=== PATIENT | male | born 1950 | race Two or more races ===

== ENCOUNTER → 2025-01-13 | Outpatient (CLI) | payer MEDICARE, OTHER, SELFPAY ==
[2025-01-13 11:31] LABS: Basophils % (Auto) 0 % (0-2.5); Eosinophils # (Auto) 0.1 Thou/mm3 (0.0-0.5); Eosinophils % (Auto) 1 % (0-10); Hematocrit 43.6 % (41.0-53.0); Hemoglobin 14.5 g/dL (13.5-16.0); Immature Granulocytes % (Auto) 1 % (0-0); Immature Granulocytes Auto 0.05 Thou/mm3 (0.00-0.00); Lymphocytes # (Auto) 1.6 Thou/mm3 (1.0-4.8); Lymphocytes % (Auto) 20 % (10-50); Mean Corpuscular HGB Conc 33.3 g/dl (31.0-37.0); Mean Corpuscular Hemoglobin 29.5 pg (25.0-35.0); Mean Corpuscular Volume 89 fL (80-100); Monocytes # (Auto) 0.5 Thou/mm3 (0.0-0.8); Monocytes % (Auto) 7 % (0-12); Neutrophils # (Auto) 5.7 Thou/mm3 (1.8-7.7); Neutrophils % (Auto) 72 % (37-80); Nucleated Red Blood Cell % 0 /100 WBC (0); Platelet Count 251 Thou/mm3 (140-440); RDW Standard Deviation 41.2 fL (35.1-43.9); Red Blood Count 4.91 Miln/mm3 (4.50-5.90)
[2025-01-13 11:48] LABS: Alanine Aminotransferase 20 U/L (10-49); Albumin, Serum 4.5 gm/dL (3.4-4.8); Albumin/Globulin Ratio 1.7 (1.2-2.2); Alkaline Phosphatase 88 U/L (46-116); Anion Gap 10 (7-16); Aspartate Amino Transferase 12 U/L (0-34); BUN/Creatinine Ratio 13 Ratio (12-20); Bilirubin,Total 0.6 mg/dL (0.3-1.2); Blood Urea Nitrogen 14 mg/dL (9-23); Calcium 9.9 mg/dL (8.3-10.6); Calcium (Corrected) 9.9 mg/dL (8.5-10.1); Carbon Dioxide 25.3 mMol/L (20.0-31.0); Chloride 106 mMol/L (98-107); Creatinine (Component) 1.1 mg/dL (0.6-1.3); Globulin 2.6 gm/dL (2.3-3.5); Glucose 137 mg/dL (74-106); Osmolality,Calculated 283 (275-295); Potassium 4.2 mMol/L (3.4-5.1); Sodium 141 mMol/L (136-145); Total Protein 7.1 gm/dL (5.7-8.2); eGFR > 60 See Note
[2025-01-13 12:02] LABS: Prostate Specific Antigen < 0.10 ng/mL (0-4.00)
[2025-01-13 12:08] LABS: Carcinoembryonic Antigen 3.3 ng/mL (0.0-5.0)
== END | disposition home or self-care (01) ==
LOC: SCTO 09:58
PROVIDERS: PCP Family Medicine; Referring Provider Internal Medicine Hematology & Oncology; Visit Provider Internal Medicine Hematology & Oncology
DX: C20 Malignant neoplasm of rectum (principal); C61 Malignant neoplasm of prostate
CPT/HCPCS: 36415; 80053; 82378; 84153; 85025

== ENCOUNTER 2025-01-20 10:49 | Outpatient (RCR) | payer MEDICARE, OTHER, SELFPAY ==
--- NOTE | 2025-02-07 22:26 | CTCFLWUP_ITS ---
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 S/p laparoscopic sigmoid colectomy (11/28/2022) Proficient MMR expression currently on adjuvant 5-FU and leucovorin (02/04/2023?07/10/2023) Left lower extremity DVT (07/03/2023) treated with apixaban. History of localized prostatic adenocarcinoma. S/p robotic prostatectomy July 2019. Type 2 diabetes. Hypertension. Hypercholesterolemia REASON FOR TODAY?S VISIT: This is office follow-up visit. Mr. Monsivais is here at [facility] accompanied by his . Neema, our MA is helping with the translation. Mr. Monsivais is clinically doing well. Denies any complaints. Denies any cough, chest pain, abdominal pain or leg cramps. Denies any diarrhea or constipation. Ambulating well. Has good appetite and good energy levels. 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 Art recently had screening colonoscopy and found to have a mass lesion in the rectal area. 06/19/2019: Prostate biopsy showed Ripton score 7 prostatic adenocarcinoma. July 2019: History of robotic assisted radical prostatectomy and bilateral pelvic lymph node dissection for pT3 aN0 cM0 Jenise score 7 prostatic adenocarcinoma.. 08/24/2022: Screening colonoscopy 08/31/2022: CT scan of the abdomen and pelvis with IV contrast? 09/19/2022: CEA 0.9 10/30/2022: Notes from [facility] 11/24/2022: MRI of the abdomen with and without contrast? 11/28/2022: Mr. Monsivais had laparoscopic sigmoid colectomy at [facility]. 12/18/2022: CT-guided biopsy of the anterior liver lesion? 10/17/2023: CT scan of the chest abdomen and pelvis with IV contrast 12/12/2023: MRI of the abdomen with and without contrast OTHER MEDICAL HISTORY/CONDITIONS: HTN Prostate CA - dx 2019 Diabetes High cholesterol Colonoscopy - 08/24/22 Right eye surgery - 2013 FAMILY HISTORY: Patient?denies?family?cancer?history. 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 MEDICATIONS: 1. amlodipine - 10 mg 1 tab Daily 2. enalapril maleate - 10 mg 1 tab Twice a Day 3. metFORMIN - 1,000 mg 1 tab Twice a Day 4. simvastatin - 20 mg 1 tab Daily Medications Last Reconciled by Gerda Beltrán MA on 01/20/2025 ALLERGIES: No Known Drug Allergies REVIEW OF SYSTEMS: A complete 14-point review of systems was performed and is negative except as noted in interval history. PHYSICAL EXAMINATION: VITAL SIGNS: Temperature?99.4, B/P?165/92, Oxygen?Saturation?94% Weight?222?lbs PAIN: 0 - No pain ECOG Performance Status: None GENERAL APPEARANCE: Appears well, in no apparent distress, appropriately interactive. HEENT: Normocephalic, no temporal wasting, normal conjunctiva, no scleral icterus, normal hearing, lips without lesions, neck normal range of motion. CARDIOVASCULAR: Not assessed. PULMONARY: Normal respiratory effort, no respiratory distress or use of accessory muscles, speaking in full sentences, no tachypnea. EXTREMITIES: No pedal edema or cyanosis. SKIN: Normal skin appearance. NEUROLOGIC: Alert and oriented x4. PSHYCHIATRIC: Appropriate affect, mood normal, behavior normal, intact thought and speech. LABORATORY DATA: I have personally reviewed and interpreted each of the patient?s relevant lab tests, abnormal findings are below: Date 08/14/24 01/13/25 ??WHITE?BLOOD?COUNT?(Thou/mm3) ? 8.0 ??RED?BLOOD?COUNT?(Miln/mm3) ? 4.91 ??HEMOGLOBIN?(gm/dl) ? 14.5 ??HEMATOCRIT?(%) ? 43.6 ??PLATELET?COUNT?(Thou/mm3) ? 251 ??NEUTROPHILS?%,?AUTO?(%) ? 72 ??LYMPH?%,?AUTO?(%) ? 20 ??NEUTROPHILS,?AUTO?(Thou/mm3) ? 5.7 ??GLUCOSE,RANDOM?(mg/dL) 148?H 137?H ??BLOOD?UREA?NITROGEN?(mg/dL) 20 14 ??CREATININE?(mg/dL) 1.10 1.10 ??SODIUM?(mmol/L) 140 141 ??POTASSIUM?(mmol/L) 4.0 4.2 ??CHLORIDE?(mmol/L) 107 106 ??CrCl?(CandG)?(ml/min) 63.58 63.58 ??AST/SGOT?(Unit/L) 14 12 ??ALT/SGPT?(Unit/L) 10 20 ??ALKALINE?PHOSPHATASE?(Unit/L) 96 88 ??BILIRUBIN,?TOTAL?(mg/dL) 0.5 0.6 ??PROTEIN?TOTAL?(gm/dl) 7.0 7.1 ??ALBUMIN,?SERUM?(gm/dl) 4.3 4.5 ??GLOBULIN?(gm/dl) 2.7 2.6 ??ALBUMIN/GLOBULIN?RATIO 1.6 1.7 ??CALCIUM,?SERUM?(mg/dL) 10.1 9.9 ??CALCIUM?SERUM?(CORRECTED)?(mg/dL) 10.1 9.9 ??CEA?(O*)?(ng/ml) ? 3.3 ASSESSMENT/PLAN: 1. Mr. Monsivais denies any complaints. Has good appetite and good energy levels. 2. CEA 1.5 on 07/22/2024 3. He still has the Chemo-Port on the right chest wall. 4. MRI of the abdomen done on 12/12/2023 is negative for metastatic disease.. 5. Left lower extremity DVT currently on Eliquis. Eliquis to be discontinued in December 2023. 6. S/p adjuvant 5-FU and leucovorin. 7. S/p laparoscopic sigmoid colectomy (11/28/2022) showed stage IIa, 4.8 cm moderately differentiated adenocarcinoma of the sigmoid colon as described above. 8. Liver biopsy negative for metastatic disease. 9. endoscopy done at [facility] on 10/30/2022 showed the tumor to be in the sigmoid colon. 10. Echocardiogram done at Dr. Rosales Ochoa's office on 05/30/2022 showed that showed ejection fraction to be 65% 11. Localized prostate cancer. S/p robotic prostatectomy in July 2019 without any clinical evidence of recurrence. Currently being followed by Dr. Gillis 12. Type 2 diabetes. 13. Hypertension. 14. Hypercholesterolemia 1. Arrange for Chemo-Port removal. 2. Will see him back in clinic in 6 months with CBC, CMP, CEA, PSA done prior to the visit ORDERS: Order # Description [id number] Comprehensive Metabolic Panel - 12 + CBC with Auto Diff + PSA + CEA [id number] Follow Up 6 Month RETURN TO CLINIC: BILLING AND COMPLIANCE: I reviewed external records from providers outside my specialty as summarized above. I spent a total of 50 minutes on this patient?s care on the day of their visit excluding time spent related to any billed procedures. This time includes time spent with the patient as well as time spent documenting in the medical record, reviewing patients records and tests, obtaining history, placing orders, communicating with other healthcare professionals, counseling the patient, family or caregiver, and/or care coordination for the diagnoses above. Electronically Signed by: {Object.Sanct_ID*[email or web address]@M}, {Object.Sanct_ID*PnP.Suffix@U} D: {Object.Sanct_Date} T: {Object.Sanct_Time} CC: Massimo?Rubens,? PCP: Skyler Palacio Referring: Skyler Palacio This document was completed utilizing speech recognition software. Grammatical errors, random word insertions, pronoun errors, and incomplete sentences are an occasional consequence of this system due to software limitations, ambient noise, and hardware issues. Any formal questions or concerns about the content, text or information contained within the body of this dictation should be directly addressed to the provider for clarification.
== END 2025-02-08 23:59 | disposition home or self-care (01) ==
LOC: SCTC 10:49
PROVIDERS: PCP Family Medicine; Referring Provider Family Medicine; Visit Provider Internal Medicine Hematology & Oncology
DX: C18.7 Malignant neoplasm of sigmoid colon (principal); Z86.718 Personal history of other venous thrombosis and embolism; Z90.49 Acquired absence of other specified parts of digestive tract; Z85.46 Personal history of malignant neoplasm of prostate; Z90.79 Acquired absence of other genital organ(s); E11.9 Type 2 diabetes mellitus without complications; I10 Essential (primary) hypertension; E78.00 Pure hypercholesterolemia, unspecified; Z92.21 Personal history of antineoplastic chemotherapy
CPT/HCPCS: 99213; G0463

== ENCOUNTER → 2025-02-10 | Outpatient (CLI) | payer MEDICARE, OTHER, SELFPAY ==
[2025-02-10 10:35] LABS: Glucose Estimated Average 148 mg/dL (80-131); Hemoglobin A1C 6.8 % Hgb (4.8-6.0)
[2025-02-10 10:44] LABS: Prostate Specific Antigen < 0.10 ng/mL (0-4.00)
[2025-02-10 10:49] LABS: Creatinine MALB Rnd Ur 105 mg/dL (30-125); Microalbumin Creat Ratio 11 mg/gCrea (<30); Microalbumin, Random Urine 12 mg/L (0-300)
[2025-02-10 10:57] LABS: Albumin, Serum 4.3 gm/dL (3.4-4.8); Anion Gap 10 (7-16); BUN/Creatinine Ratio 13 Ratio (12-20); Blood Urea Nitrogen 14 mg/dL (9-23); Calcium 9.4 mg/dL (8.3-10.6); Calcium (Corrected) 9.4 mg/dL (8.5-10.1); Carbon Dioxide 25.9 mMol/L (20.0-31.0); Cardiac Risk Estimate 3.8 RATIO (4.0-6.7); Chloride 106 mMol/L (98-107); Cholesterol 125 mg/dL (132-200); Creatinine (Component) 1.1 mg/dL (0.6-1.3); Glucose 126 mg/dL (74-106); HDL Cholesterol 33 mg/dL (40-60); LDL Cholesterol,Calculated 71 mg/dL (0-130); Osmolality,Calculated 285 (275-295); Potassium 4.2 mMol/L (3.4-5.1); Sodium 142 mMol/L (136-145); Thyroid Stimulating Hormone 8.39 uIU/mL (0.55-4.78); Triglycerides 103 mg/dL (30-150); eGFR > 60 See Note
== END | disposition home or self-care (01) ==
LOC: COPL 09:28
PROVIDERS: PCP Family Medicine; Referring Provider Family Medicine; Visit Provider Family Medicine
DX: N42.9 Disorder of prostate, unspecified (principal); E11.65 Type 2 diabetes mellitus with hyperglycemia; E78.1 Pure hyperglyceridemia
CPT/HCPCS: 36415; 80061; 80069; 82043; 82570; 83036; 84153; 84439; 84443

== ENCOUNTER → 2025-02-15 | Outpatient (CLI) | payer MEDICARE, OTHER, SELFPAY ==
[2025-02-15 09:14] LABS: Misc Send Out* See Sep Rpt
== END | disposition home or self-care (01) ==
PROVIDERS: PCP Family Medicine; Referring Provider Internal Medicine Hematology & Oncology; Visit Provider Internal Medicine Hematology & Oncology
DX: C20 Malignant neoplasm of rectum (principal); C61 Malignant neoplasm of prostate

== ENCOUNTER 2025-07-26 10:50 | Outpatient (RCR) | payer MEDICARE, OTHER, SELFPAY ==
[2025-07-23 10:39] LABS: Basophils # (Auto) 0.0 Thou/mm3 (0.0-0.2); Basophils % (Auto) 1 % (0-2.5); Eosinophils # (Auto) 0.2 Thou/mm3 (0.0-0.5); Eosinophils % (Auto) 3 % (0-10); Hematocrit 38.7 % (41.0-53.0); Hemoglobin 12.8 g/dL (13.5-16.0); Immature Granulocytes Auto 0.03 Thou/mm3 (0.00-0.00); Lymphocytes # (Auto) 1.4 Thou/mm3 (1.0-4.8); Lymphocytes % (Auto) 18 % (10-50); Mean Corpuscular HGB Conc 33.1 g/dl (31.0-37.0); Mean Corpuscular Hemoglobin 29.7 pg (25.0-35.0); Mean Corpuscular Volume 90 fL (80-100); Monocytes # (Auto) 0.5 Thou/mm3 (0.0-0.8); Monocytes % (Auto) 7 % (0-12); Neutrophils # (Auto) 5.7 Thou/mm3 (1.8-7.7); Neutrophils % (Auto) 72 % (37-80); Nucleated Red Blood Cell # 0.00 Thou/mm3 (0.00-0.00); Nucleated Red Blood Cell % 0 /100 WBC (0); Platelet Count 256 Thou/mm3 (140-440); RDW Standard Deviation 41.9 fL (35.1-43.9); Red Blood Count 4.31 Miln/mm3 (4.50-5.90); White Blood Count 7.9 Thou/mm3 (3.8-10.6)
[2025-07-23 10:56] LABS: Prostate Specific Antigen < 0.10 ng/mL (0-4.00)
[2025-07-23 11:01] LABS: Carcinoembryonic Antigen 6.9 ng/mL (0.0-5.0)
[2025-07-23 11:12] LABS: Alanine Aminotransferase 9 U/L (10-49); Albumin, Serum 4.1 gm/dL (3.4-4.8); Albumin/Globulin Ratio 1.7 (1.2-2.2); Alkaline Phosphatase 97 U/L (46-116); Anion Gap 12 (7-16); Aspartate Amino Transferase 18 U/L (0-34); BUN/Creatinine Ratio 15 Ratio (12-20); Bilirubin,Total 0.4 mg/dL (0.3-1.2); Blood Urea Nitrogen 16 mg/dL (9-23); Calcium 9.7 mg/dL (8.3-10.6); Calcium (Corrected) 9.7 mg/dL (8.5-10.1); Carbon Dioxide 23.4 mMol/L (20.0-31.0); Chloride 106 mMol/L (98-107); Creatinine (Component) 1.1 mg/dL (0.6-1.3); Globulin 2.4 gm/dL (2.3-3.5); Glucose 105 mg/dL (74-106); Osmolality,Calculated 282 (275-295); Potassium 4.0 mMol/L (3.4-5.1); Sodium 141 mMol/L (136-145); Total Protein 6.5 gm/dL (5.7-8.2); eGFR > 60 See Note
--- NOTE | 2025-07-26 11:46 | CTCFLWUP_ITS ---
Patient: KOKI MONSIVAIS : 1950 Page 5 of 7 FOLLOW UP NOTE DATE OF SERVICE: 07/26/2025 NAME: KOKI MONSIVAIS ACCOUNT: [id number] : 1950 AGE: 75 INTERVAL HISTORY: Patient is here for regular follow-up. Patient had naterra testing done which has come back with elevated CT DNA. Patient CEA also elevated. Patient do not have any symptoms from the cancer at this time. 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 S/p laparoscopic sigmoid colectomy (11/28/2022) Proficient MMR expression currently on adjuvant 5-FU and leucovorin (02/04/2023?07/10/2023) Left lower extremity DVT (07/03/2023) treated with apixaban. History of localized prostatic adenocarcinoma. S/p robotic prostatectomy July 2019. Type 2 diabetes. Hypertension. Hypercholesterolemia REASON FOR TODAY?S VISIT: This is office follow-up visit. Mr. Monsivais is here at [facility] accompanied by his . Neema, our MA is helping with the translation. Mr. Monsivais is clinically doing well. Denies any complaints. Denies any cough, chest pain, abdominal pain or leg cramps. Denies any diarrhea or constipation. Ambulating well. Has good appetite and good energy levels. 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 Art recently had screening colonoscopy and found to have a mass lesion in the rectal area. 06/19/2019: Prostate biopsy showed Jenise score 7 prostatic adenocarcinoma. July 2019: History of robotic assisted radical prostatectomy and bilateral pelvic lymph node dissection for pT3 aN0 cM0 Fortuna score 7 prostatic adenocarcinoma.. 08/24/2022: Screening colonoscopy 08/31/2022: CT scan of the abdomen and pelvis with IV contrast? 09/19/2022: CEA 0.9 10/30/2022: Notes from [facility] 11/24/2022: MRI of the abdomen with and without contrast? 11/28/2022: Mr. Monsivais had laparoscopic sigmoid colectomy at [facility]. 12/18/2022: CT-guided biopsy of the anterior liver lesion? 10/17/2023: CT scan of the chest abdomen and pelvis with IV contrast 12/12/2023: MRI of the abdomen with and without contrast OTHER MEDICAL HISTORY/CONDITIONS: HTN Prostate CA - dx 2018 Diabetes High cholesterol Colonoscopy - 08/24/22 Right eye surgery - 2013 FAMILY HISTORY: Patient?denies?family?cancer?history. 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 MEDICATIONS: 1. amlodipine - 10 mg 1 tab Daily 2. enalapril maleate - 10 mg 1 tab Twice a Day 3. metFORMIN - 1,000 mg 1 tab Twice a Day 4. simvastatin - 20 mg 1 tab Daily Medications Last Reconciled by Nilda Bryan MA on 07/26/2025 ALLERGIES: No Known Drug Allergies REVIEW OF SYSTEMS: A complete 14-point review of systems was performed and is negative except as noted in interval history. PHYSICAL EXAMINATION: VITAL SIGNS: PAIN: 0 - No pain ECOG Performance Status: 0 - Asymptomatic and fully active GENERAL APPEARANCE: Appears well, in no apparent distress, appropriately interactive. HEENT: Normocephalic, no temporal wasting, normal conjunctiva, no scleral icterus, normal hearing, lips without lesions, neck normal range of motion. CARDIOVASCULAR: Not assessed. PULMONARY: Normal respiratory effort, no respiratory distress or use of accessory muscles, speaking in full sentences, no tachypnea. EXTREMITIES: No pedal edema or cyanosis. SKIN: Normal skin appearance. NEUROLOGIC: Alert and oriented x4. PSHYCHIATRIC: Appropriate affect, mood normal, behavior normal, intact thought and speech. LABORATORY DATA: I have personally reviewed and interpreted each of the patient?s relevant lab tests, abnormal findings are below: Date 02/10/25 07/23/25 ??WHITE?BLOOD?COUNT?(Thou/mm3) ? 7.9 ??RED?BLOOD?COUNT?(Miln/mm3) ? 4.31?L ??HEMOGLOBIN?(gm/dl) ? 12.8?L ??HEMATOCRIT?(%) ? 38.7?L ??PLATELET?COUNT?(Thou/mm3) ? 256 ??NEUTROPHILS?%,?AUTO?(%) ? 72 ??LYMPH?%,?AUTO?(%) ? 18 ??NEUTROPHILS,?AUTO?(Thou/mm3) ? 5.7 ??GLUCOSE,RANDOM?(mg/dL) 126?H 105 ??BLOOD?UREA?NITROGEN?(mg/dL) 14 16 ??CREATININE?(mg/dL) 1.10 1.10 ??SODIUM?(mmol/L) 142 141 ??POTASSIUM?(mmol/L) 4.2 4.0 ??CHLORIDE?(mmol/L) 106 106 ??CrCl?(CandG)?(ml/min) 63.29 60.65 ??AST/SGOT?(Unit/L) ? 18 ??ALT/SGPT?(Unit/L) ? 9?L ??ALKALINE?PHOSPHATASE?(Unit/L) ? 97 ??BILIRUBIN,?TOTAL?(mg/dL) ? 0.4 ??PROTEIN?TOTAL?(gm/dl) ? 6.5 ??ALBUMIN,?SERUM?(gm/dl) 4.3 4.1 ??GLOBULIN?(gm/dl) ? 2.4 ??ALBUMIN/GLOBULIN?RATIO ? 1.7 ??CALCIUM,?SERUM?(mg/dL) 9.4 9.7 ??CALCIUM?SERUM?(CORRECTED)?(mg/dL) 9.4 9.7 ??CEA?(O*)?(ng/ml) ? 6.9?H ASSESSMENT/PLAN: #1 adenocarcinoma of the sigmoid colon status post laparoscopic sigmoid colectomy 11/28/2022 staged to a 4.8 cm moderately differentiated liver biopsy negative for metastatic disease Patient was on surveillance and Anatera showed rising CT DNA CEA elevated at 6.[address] chest abdomen pelvis with IV contrast endoscopy done at [facility] on 10/30/2022 showed the tumor to be in the sigmoid colon. Echocardiogram done at Dr. Rosales Ochoa's office on 05/30/2022 showed that showed ejection fraction to be 65% Localized prostate cancer. Patient likely have metastatic disease at this time Follow-up on the CT chest abdomen pelvis Port catheter in place and was recently flushed Will start on chemotherapy with FOLFOX and bevacizumab if found to have metastatic disease .. History of left lower extremity DVT currently on Eliquis. Eliquis discontinued in December 2023. Prostate cancer S/p robotic prostatectomy in July 2019 without any clinical evidence of recurrence. Currently being followed by Dr. Gillis Type 2 diabetes. Hypertension. Hypercholesterolemia Will see him back in clinic in 6 months with CBC, CMP, CEA, PSA done prior to the visit ORDERS: Order # Description [id number] CT Scan + Chest + Abdomen and Pelvis + With Contrast [id number] Follow Up 4 Week RETURN TO CLINIC: I reviewed the diagnosis, prognosis, and recommended treatment/procedure options with the patient (and/or their legal school admissions representative), including the potential benefits, risks, side effects and alternative therapies. We also discussed the option of no treatment and the possibility of clinical trial participation, if applicable. All questions were addressed, and they demonstrated understanding. They provided informed consent to proceed with the proposed plan of care. BILLING AND COMPLIANCE: I reviewed external records from providers outside my specialty as summarized above. I spent a total of 50 minutes on this patient?s care on the day of their visit excluding time spent related to any billed procedures. This time includes time spent with the patient as well as time spent documenting in the medical record, reviewing patients records and tests, obtaining history, placing orders, communicating with other healthcare professionals, counseling the patient, family or caregiver, and/or care coordination for the diagnoses above. Electronically Signed by: Jair Kramer MD T: 11:44 AM CC: Massimo?Rubens? PCP: Skyler Palacio Referring: Skyler Palacio This document was completed utilizing speech recognition software. Grammatical errors, random word insertions, pronoun errors, and incomplete sentences are an occasional consequence of this system due to software limitations, ambient noise, and hardware issues. Any formal questions or concerns about the content, text or information contained within the body of this dictation should be directly addressed to the provider for clarification.
== END 2025-08-10 23:59 | disposition home or self-care (01) ==
LOC: SCTC 10:50
PROVIDERS: PCP Family Medicine; Referring Provider Family Medicine; Visit Provider Internal Medicine Hematology & Oncology
DX: C18.7 Malignant neoplasm of sigmoid colon (principal); Z90.49 Acquired absence of other specified parts of digestive tract; R97.0 Elevated carcinoembryonic antigen [CEA]; Z86.718 Personal history of other venous thrombosis and embolism; Z85.46 Personal history of malignant neoplasm of prostate; Z92.21 Personal history of antineoplastic chemotherapy; Z90.79 Acquired absence of other genital organ(s); E11.9 Type 2 diabetes mellitus without complications; I10 Essential (primary) hypertension; E78.00 Pure hypercholesterolemia, unspecified; Z79.84 Long term (current) use of oral hypoglycemic drugs
CPT/HCPCS: 36591; 80053; 82378; 84153; 85025; 99213; A4216; J1642; G0463

== ENCOUNTER → 2025-08-20 | Outpatient (CLI) | payer MEDICARE, OTHER, SELFPAY ==
[2025-08-20 08:58] LABS: Glucose Estimated Average 131 mg/dL (80-131); Hemoglobin A1C 6.2 % Hgb (4.8-6.0)
[2025-08-20 09:04] LABS: Creatinine MALB Rnd Ur 111 mg/dL (30-125); Microalbumin Creat Ratio 9 mg/gCrea (<30); Microalbumin, Random Urine 10 mg/L (0-300)
[2025-08-20 09:17] LABS: Alanine Aminotransferase 12 U/L (10-49); Albumin, Serum 4.4 gm/dL (3.4-4.8); Albumin/Globulin Ratio 1.7 (1.2-2.2); Alkaline Phosphatase 112 U/L (46-116); Anion Gap 12 (7-16); Aspartate Amino Transferase 21 U/L (0-34); BUN/Creatinine Ratio 15 Ratio (12-20); Bilirubin,Total 0.5 mg/dL (0.3-1.2); Blood Urea Nitrogen 19 mg/dL (9-23); Calcium 9.7 mg/dL (8.3-10.6); Calcium (Corrected) 9.7 mg/dL (8.5-10.1); Carbon Dioxide 24.1 mMol/L (20.0-31.0); Cardiac Risk Estimate 3.3 RATIO (4.0-6.7); Chloride 106 mMol/L (98-107); Cholesterol 111 mg/dL (132-200); Creatinine (Component) 1.3 mg/dL (0.6-1.3); Globulin 2.6 gm/dL (2.3-3.5); Glucose 122 mg/dL (74-106); HDL Cholesterol 34 mg/dL (40-60); LDL Cholesterol,Calculated 59 mg/dL (0-130); Osmolality,Calculated 286 (275-295); Potassium 4.3 mMol/L (3.4-5.1); Sodium 142 mMol/L (136-145); Total Protein 7.0 gm/dL (5.7-8.2); Triglycerides 89 mg/dL (30-150); eGFR 57 See Note
== END | disposition home or self-care (01) ==
LOC: COPL 07:13
PROVIDERS: PCP Family Medicine; Referring Provider Family Medicine; Visit Provider Family Medicine
DX: E78.1 Pure hyperglyceridemia (principal); E11.65 Type 2 diabetes mellitus with hyperglycemia
CPT/HCPCS: 36415; 80053; 80061; 82043; 82570; 83036

== ENCOUNTER 2025-08-27 14:52 | Emergency (ER) | payer MEDICARE, OTHER, SELFPAY ==
[2025-08-27 15:09] VITALS: BP 139/77; PULSE 97; RESP 17; TEMP 37.2; O2SAT 95
[2025-08-27 15:35] VITALS: BMI 33.5
--- NOTE | 2025-08-27 15:39 | PD.EDADULT ---
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 Kramer for evaluation of CT findings today. Patient states he had a CT chest completed today that was ordered by Dr. Kramer. States he was called by the CTC that he needed to come to the ED for further evaluation and treatment though not aware of the results or why he was told to come. Patient has no associated symptoms or complaints reported. Related Data Home Medications ?Medication ?Instructions ?Recorded ?Confirmed enalapril maleate 10 mg tablet 10 mg PO BID ##30 08/14/16 12/18/22 simvastatin 20 mg tablet 20 mg PO HS ##30 08/14/16 12/18/22 amlodipine 10 mg tablet 10 mg PO QDAY 08/24/22 12/18/22 metformin 1,000 mg tablet 1,000 mg PO BID 08/24/22 12/18/22 latanoprost 0.005 % eye drops 1 drp ophthalmic (eye) HS 12/18/22 12/18/22 timolol maleate 0.5 % eye drops 1 drp ophthalmic (eye) BID 12/18/22 12/18/22 Previous Rx's ?Medication ?Instructions ?Recorded apixaban 5 mg tablet (Eliquis) 10 mg (2 x 5 mg) PO BID PULMONARY 08/27/25 EMBOLUS #60 tabs Allergies Allergy/AdvReac Type Severity Reaction Status Date / Time No Known Allergies Allergy Verified 08/27/25 15:02 Review of Systems Review of Systems Systems Reviewed: All systems reviewed, normal except as documented Past Medical History Past Medical History CARDIAC: Positive Cardiac Disorders, Hypercholesterolemia and Hypertension GASTROINTESTINAL: Positive Gastrointestinal Disorders (colon resection surgery, tumor removal 11/28/2022), Colorectal Cancer and Obesity GENITOURINARY: Positive Prostate Cancer and Benign Prostatic Hyperplasia (prostatectomy due to cancer) ENT: Positive Cataracts (RIGHT) and Retinal Detachment (right eye) ENDOCRINE: Positive Endocrine Disorders and Diabetes Mellitus Type 2 OTHER HISTORY: Positive Hospitalization (prostate surgery), Cancer, Colorectal Cancer and Prostate Cancer Surgical History SURGICAL: Positive Ear Surgery, Eye Surgery (RETINA RIGHT EYE), Abdominal Surgery (removal of prostate 2019.) and Bowel Surgery (surgery 11/28/2022) Social History SMOKING STATUS: Never smoker ED Exam General Limitations: Present no limitations General appearance: Present alert and in no apparent distress Head Head exam: Present atraumatic, normocephalic and normal inspection Eye Eye exam: Present normal appearance, PERRL and EOMI ENT ENT exam: Present normal exam, normal oropharynx and mucous membranes moist Neck Neck exam: Present normal inspection, full ROM and trachea midline Chest Chest inspection: Present normal inspection and symmetric chest wall rise Respiratory Respiratory exam: Present normal lung sounds bilaterally Cardiovascular Cardiovascular exam: Present regular rate, normal rhythm and normal heart sounds Abdominal Exam Abdominal exam: Present soft and normal bowel sounds Extremities Exam Extremities exam: Present normal inspection and full ROM Back Exam Back exam: Present normal inspection and full ROM Neurological Exam Neurological exam: Present alert, oriented X3 and CN II-XII intact Psychiatric Psychiatric exam: Present normal affect and normal mood Skin Skin exam: Present warm, dry, intact and normal color Course Quality Measures none Orders Category Date Time Status CBC Stat Lab 08/27/25 16:48 Completed Partial Thromboplastin Time Stat Lab 08/27/25 16:48 Completed Prothrombin Time with INR Stat Lab 08/27/25 16:48 Completed Enoxaparin [Lovenox] Med 08/27/25 15:53 Discontinued 90 mg SC X1 ONE Vital Signs Vital signs: Vital Signs Temperature 98.9 F 08/27/25 15:09 Pulse Rate 97 08/27/25 15:09 Respiratory Rate 17 08/27/25 15:09 Blood Pressure 139/77 H 08/27/25 15:09 Pulse Oximetry (%) 95 08/27/25 15:09 Oxygen Delivery Method Room Air 08/27/25 15:09 Pulse ox is 95% on room air which is adequate. Discharge Plan Plan Patient Disposition: HOME (Self Care) Patient condition on transfer: Stable Prescriptions/Referrals Prescriptions/Med Rec: New Eliquis 5 mg tablet 10 mg PO BID MDD 4 Qty: 60 0RF Rx Instructions: eLIQUIS 5 MG 2 TABS TWICE DAILY FOR 10 DAYS THEN 5 MG 1 TABLET EACH DAY THEREAFTER No Action enalapril maleate 10 MG tablet 10 mg PO BID Qty: 30 simvastatin 20 MG tablet 20 mg PO HS Qty: 30 amlodipine 10 mg tablet 10 mg PO QDAY metformin 1,000 mg tablet 1,000 mg PO BID latanoprost 0.005 % drops 1 drp OPHTHALMIC (EYE) HS timolol maleate 0.5 % drops 1 drp OPHTHALMIC (EYE) BID Problem List Clinical Impression: Pulmonary embolism Patient/Caregiver Discharge Instructions Discharge Activity: other Other Activity Instructions:: Rest each day for the next 5 days. No working, cleaning, walking at home during that time. Get up only to go to the bathroom and eat meals and generally rest. Education Materials: Pulmonary Embolism Additional Instructions: Follow-up with your doctor early next week. Please call on Saturday for an appointment. Continue your usual medications as directed. Print Language: Persian Stand Alone Forms: [employer] Info., Patient Portal Info Letter MDM Narrative MDM hospital course (for use when minimal MDM required): I, Veronika Conrad, am scribing for and in the presence of Dr. Amaya. 1545: I called Dr. Kramer and is currently not available, per CTC she is gone for the day. I attempted calling her cell, no answer, and the voicemail box is full. Clinical Information Provided by: patient Medical Records reviewed [facility] Meds/Rx considered, not ordered None Labs/Rad/Tests considered, not ordered None Chronic Illness/Social Conditions which may negatively complicate care or outcome(s)-explain: Cancer EKG EKG not done Labs Labs: none Imaging Imaging Interpretation(s): Ordering Physician: Jair Kramer MD Date of Service: 08/27/25 Procedure(s): CT chest abdomen pelvis w Accession Number(s): [id number] cc: Jair Kramer MD; Edison Laurent MD; Skyler Palacio MD~ Examination: CT chest with intravenous contrast CT abdomen with intravenous contrast CT pelvis with intravenous contrast 2-D coronal and sagittal reconstructions Time of exam: July 28, 2025, 1344 hours, comparison October 17, 2023 CT chest abdomen pelvis, MRI abdomen with without contrast December 12, 2023 CTDI: vol (mGy) : 15.3 DLP: (mGycm): 813 Technique: Multiple axial images of the chest, abdomen and pelvis with intravenous contrast, 3.0 mm slice thickness. Images obtained post intravenous injection Isovue 370 60 cc. 2-D sagittal and coronal reconstructions. Low dose protocols were performed. One or more of the following dose reduction techniques were used; automated exposure control, adjustment of the mA and/or KV according to patient size, use of iterative reconstruction technique. Findings: No thoracic aortic aneurysm or dilatation Axial image 98 is suspicious for pulmonary artery filling defects in the left main left pulmonary artery No paratracheal tracheobronchial or bronchopulmonary adenopathy No pneumonia, pulmonary edema or pleural disease Interval numerous hepatic metastases,, the largest in the right lobe 8 cm, multiple left lobe metastases the largest 4 cm Spleen is not enlarged No pancreatic or adrenal mass Perinephric stranding Numerous bilateral benign renal cysts Stable 10 mm left lateral para-aortic lymph node Trace ascites Normal appendix No bowel obstruction Rectosigmoid sutures No pelvic lymphadenopathy Fat-containing inguinal hernias Prominent osteopenia Moderate osteopenia IMPRESSION: Suspicious for left pulmonary artery emboli No mediastinal lymphadenopathy No interval metastatic pulmonary nodules Interval numerous large hepatic metastases compared with October 17, 2023 Dictated By: Edison Laurent MD Signed By: <Electronically signed by Edison Laurent MD in OV> 08/27/25 1428 Medication Administration(s) Medication Administration History Discontinued Medications Enoxaparin Sodium (Enoxaparin Sod Inj 100 Mg/Ml Syringe) 90 mg SC X1 ONE Stop: 08/27/25 15:54 Last Admin: 08/27/25 16:25 Dose: 90 mg Documented By: DB See above Diagnosis Diagnoses ruled out and/or further discussions: Pulmonary embolism
[2025-08-27 16:07] VITALS: BP 115/70; PULSE 71; RESP 15; TEMP 37.1; O2SAT 94
[2025-08-27] MEDS: ENOXAPARIN SOD INJ 100 MG/ML SYRINGE 90 MG SC (16:25)
[2025-08-27 17:11] LABS: Basophils # (Auto) 0.1 Thou/mm3 (0.0-0.2); Basophils % (Auto) 1 % (0-2.5); Eosinophils # (Auto) 0.2 Thou/mm3 (0.0-0.5); Eosinophils % (Auto) 2 % (0-10); Hematocrit 38.0 % (41.0-53.0); Hemoglobin 12.5 g/dL (13.5-16.0); Immature Granulocytes Auto 0.03 Thou/mm3 (0.00-0.00); Lymphocytes # (Auto) 1.3 Thou/mm3 (1.0-4.8); Lymphocytes % (Auto) 12 % (10-50); Mean Corpuscular HGB Conc 32.9 g/dl (31.0-37.0); Mean Corpuscular Hemoglobin 29.1 pg (25.0-35.0); Mean Corpuscular Volume 88 fL (80-100); Monocytes # (Auto) 0.7 Thou/mm3 (0.0-0.8); Monocytes % (Auto) 6 % (0-12); Neutrophils # (Auto) 8.6 Thou/mm3 (1.8-7.7); Neutrophils % (Auto) 79 % (37-80); Nucleated Red Blood Cell # 0.00 Thou/mm3 (0.00-0.00); Nucleated Red Blood Cell % 0 /100 WBC (0); Platelet Count 229 Thou/mm3 (140-440); RDW Standard Deviation 41.7 fL (35.1-43.9); Red Blood Count 4.30 Miln/mm3 (4.50-5.90); White Blood Count 10.9 Thou/mm3 (3.8-10.6)
[2025-08-27 17:35] LABS: INR 1.0 (0.9-1.3); Partial Thromboplastin Time 26.1 Seconds (22.0-36.0); Prothrombin Time 11.1 Seconds (9.0-12.2)
[2025-08-27 17:44] VITALS: BP 140/87; PULSE 88; RESP 16; TEMP 36.7; O2SAT 98
== END 2025-08-27 17:45 | disposition home or self-care (01) ==
LOC: SERX 16:26
PROVIDERS: Emergency Provider Family Medicine; PCP Family Medicine
DX: I26.99 Other pulmonary embolism without acute cor pulmonale (principal); E11.9 Type 2 diabetes mellitus without complications; E78.5 Hyperlipidemia, unspecified; I10 Essential (primary) hypertension; Z79.01 Long term (current) use of anticoagulants; Z79.84 Long term (current) use of oral hypoglycemic drugs; Z85.038 Personal history of other malignant neoplasm of large intestine
CPT/HCPCS: 36415; 85025; 85610; 85730; 99283; J1650

== ENCOUNTER → 2025-08-27 | Outpatient (CLI) | payer MEDICARE, OTHER, SELFPAY ==
--- NOTE | 2025-08-27 13:00 | XR_ITS ---
Examination: CT chest with intravenous contrast CT abdomen with intravenous contrast CT pelvis with intravenous contrast 2-D coronal and sagittal reconstructions Time of exam: July 28, 2025, 1344 hours, comparison October 17, 2023 CT chest abdomen pelvis, MRI abdomen with without contrast December 12, 2023 CTDI: vol (mGy) : 15.3 DLP: (mGycm): 813 Technique: Multiple axial images of the chest, abdomen and pelvis with intravenous contrast, 3.0 mm slice thickness. Images obtained post intravenous injection Isovue 370 60 cc. 2-D sagittal and coronal reconstructions. Low dose protocols were performed. One or more of the following dose reduction techniques were used; automated exposure control, adjustment of the mA and/or KV according to patient size, use of iterative reconstruction technique. Findings: No thoracic aortic aneurysm or dilatation Axial image 98 is suspicious for pulmonary artery filling defects in the left main left pulmonary artery No paratracheal tracheobronchial or bronchopulmonary adenopathy No pneumonia, pulmonary edema or pleural disease Interval numerous hepatic metastases,, the largest in the right lobe 8 cm, multiple left lobe metastases the largest 4 cm Spleen is not enlarged No pancreatic or adrenal mass Perinephric stranding Numerous bilateral benign renal cysts Stable 10 mm left lateral para-aortic lymph node Trace ascites Normal appendix No bowel obstruction Rectosigmoid sutures No pelvic lymphadenopathy Fat-containing inguinal hernias Prominent osteopenia Moderate osteopenia IMPRESSION: Suspicious for left pulmonary artery emboli No mediastinal lymphadenopathy No interval metastatic pulmonary nodules Interval numerous large hepatic metastases compared with October 17, 2023
== END | disposition home or self-care (01) ==
PROVIDERS: PCP Family Medicine; Referring Provider Internal Medicine Hematology & Oncology; Visit Provider Internal Medicine Hematology & Oncology
DX: R91.8 Other nonspecific abnormal finding of lung field (principal); C20 Malignant neoplasm of rectum; C61 Malignant neoplasm of prostate
CPT/HCPCS: 71260; 74177; A4649; Q9967

== ENCOUNTER 2025-09-02 11:33 | Outpatient (RCR) | payer MEDICARE, OTHER, SELFPAY ==
--- NOTE | 2025-09-05 22:26 | CTCFLWUP_ITS ---
Patient: KOKI MONSIVAIS : 1950 Page 6 of 8 FOLLOW UP NOTE DATE OF SERVICE: 09/02/2025 NAME: KOKI MONSIVAIS ACCOUNT: [id number] : 1950 AGE: 75 INTERVAL HISTORY: Summary -patient is here for regular follow-up. Patient had naterra testing done which has come back with elevated CT DNA. Patient CEA also elevated. Patient was diagnosed with pulmonary embolism on CT scan ordered to follow-up on his cancer and was discharged on Eliquis by emergency room physician. Patient's CT scan is concerning for progression of cancer in the liver. I cannot hold patient's chemotherapy to confirm liver reoccurrence with the biopsy as patient need to be on anticoagulation for at least 3 months before I can hold his anticoagulation. Patient will be started on chemotherapy and monitored with imaging as well as CEA Anatera. ONCOLOGY HISTORY:?[facility] Oncology Hx? 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 S/p laparoscopic sigmoid colectomy (11/28/2022) Proficient MMR expression currently on adjuvant 5-FU and leucovorin (02/04/2023?07/10/2023) Left lower extremity DVT (07/03/2023) treated with apixaban. History of localized prostatic adenocarcinoma. S/p robotic prostatectomy July 2019. Type 2 diabetes. Hypertension. Hypercholesterolemia REASON FOR TODAY?S VISIT: This is office follow-up visit. Mr. Monsivais is here at [facility] accompanied by his . Neema, our MA is helping with the translation. Mr. Monsivais is clinically doing well. Denies any complaints. Denies any cough, chest pain, abdominal pain or leg cramps. Denies any diarrhea or constipation. Ambulating well. Has good appetite and good energy levels. 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 status post laparoscopic colectomy 11/28/2022 MMR proficient status post chemo with 5-FU TREATMENT HISTORY: Care?Plan Start?Date Cycle Day Intent modified?FOLFOXIRI?shruti?rectal?YVONNE?1 09/19/2022 1 14 Curative?(primary) 5FU?and?Luecovorin 02/04/2023 1 14 Curative?(adjuvant) mFOLFOX-6?+?Bevacizumab?5?mg/kg 09/02/2025 1 14 Palliative HISTORY OF PRESENT ILLNESS: Koki Monsivais is a 75-year-old SPA speaking male with history of type 2 diabetes, hypertension, hypercholesterolemia as well as history of prostate cancer s/p robotic prostatectomy at [facility] currently being followed by Dr. Art recently had screening colonoscopy and found to have a mass lesion in the rectal area. 06/19/2019: Prostate biopsy showed Lenox score 7 prostatic adenocarcinoma. July 2019: History of robotic assisted radical prostatectomy and bilateral pelvic lymph node dissection for pT3 aN0 cM0 Lenox score 7 prostatic adenocarcinoma.. 08/24/2022: Screening colonoscopy 08/31/2022: CT scan of the abdomen and pelvis with IV contrast? 09/19/2022: CEA 0.9 10/30/2022: Notes from [facility] 11/24/2022: MRI of the abdomen with and without contrast? 11/28/2022: Mr. Monsivais had laparoscopic sigmoid colectomy at [facility]. 12/18/2022: CT-guided biopsy of the anterior liver lesion? 10/17/2023: CT scan of the chest abdomen and pelvis with IV contrast 12/12/2023: MRI of the abdomen with and without contrast OTHER MEDICAL HISTORY/CONDITIONS: HTN Prostate CA - dx 2018 Diabetes High cholesterol Colonoscopy - 08/24/22 Right eye surgery - 2013 FAMILY HISTORY: Patient?denies?family?cancer?history. 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 MEDICATIONS: 1. amlodipine - 10 mg 1 tab Daily 2. Eliquis - 5 mg 1 tab Twice a Day 3. enalapril maleate - 10 mg 1 tab Twice a Day 4. metFORMIN - 1,000 mg 1 tab Twice a Day 5. simvastatin - 20 mg 1 tab Daily?Palabra Meds? Medications Last Reconciled by Krystal Parish MA on 09/02/2025 ALLERGIES: No Known Drug Allergies REVIEW OF SYSTEMS: A complete 14-point review of systems was performed and is negative except as noted in interval history. PHYSICAL EXAMINATION:?CloneBlock PE? VITAL SIGNS: Temperature?99.1, B/P?148/76 Weight?211?lbs PAIN: 0 - No pain GENERAL APPEARANCE: Appears well, in no apparent distress, appropriately interactive. HEENT: Normocephalic, no temporal wasting, normal conjunctiva, no scleral icterus, normal hearing, lips without lesions, neck normal range of motion. CARDIOVASCULAR: Not assessed. PULMONARY: Normal respiratory effort, no respiratory distress or use of accessory muscles, speaking in full sentences, no tachypnea. EXTREMITIES: No pedal edema or cyanosis. SKIN: Normal skin appearance. NEUROLOGIC: Alert and oriented x4. PSHYCHIATRIC: Appropriate affect, mood normal, behavior normal, intact thought and speech. LABORATORY DATA: I have personally reviewed and interpreted each of the patient?s relevant lab tests, abnormal findings are below: Date 07/23/25 08/20/25 08/27/25 ??WHITE?BLOOD?COUNT?(Thou/mm3) 7.9 ? 10.9?H ??RED?BLOOD?COUNT?(Miln/mm3) 4.31?L ? 4.30?L ??HEMOGLOBIN?(gm/dl) 12.8?L ? 12.5?L ??HEMATOCRIT?(%) 38.7?L ? 38.0?L ??PLATELET?COUNT?(Thou/mm3) 256 ? 229 ??NEUTROPHILS?%,?AUTO?(%) 72 ? 79 ??LYMPH?%,?AUTO?(%) 18 ? 12 ??NEUTROPHILS,?AUTO?(Thou/mm3) 5.7 ? 8.6?H ??GLUCOSE,RANDOM?(mg/dL) 105 122?H ? ??BLOOD?UREA?NITROGEN?(mg/dL) 16 19 ? ??CREATININE?(mg/dL) 1.10 1.30 ? ??SODIUM?(mmol/L) 141 142 ? ??POTASSIUM?(mmol/L) 4.0 4.3 ? ??CHLORIDE?(mmol/L) 106 106 ? ??CrCl?(CandG)?(ml/min) 60.65 51.37 ? ??AST/SGOT?(Unit/L) 18 21 ? ??ALT/SGPT?(Unit/L) 9?L 12 ? ??ALKALINE?PHOSPHATASE?(Unit/L) 97 112 ? ??BILIRUBIN,?TOTAL?(mg/dL) 0.4 0.5 ? ??PROTEIN?TOTAL?(gm/dl) 6.5 7.0 ? ??ALBUMIN,?SERUM?(gm/dl) 4.1 4.4 ? ??GLOBULIN?(gm/dl) 2.4 2.6 ? ??ALBUMIN/GLOBULIN?RATIO 1.7 1.7 ? ??CALCIUM,?SERUM?(mg/dL) 9.7 9.7 ? ??CALCIUM?SERUM?(CORRECTED)?(mg/dL) 9.7 9.7 ? ASSESSMENT/PLAN:?Nohelia Kramer Assessment/Plan? #1 adenocarcinoma of the sigmoid colon status post laparoscopic sigmoid colectomy 11/28/2022 staged to a 4.8 cm moderately differentiated liver biopsy negative for metastatic disease Patient was on surveillance and Anatera showed rising CT DNA CEA elevated at 6.[address] chest abdomen pelvis with IV contrast endoscopy done at [facility] on 10/30/2022 showed the tumor to be in the sigmoid colon. Echocardiogram done at Dr. Rosales Ochoa's office on 05/30/2022 showed that showed ejection fraction to be 65% Localized prostate cancer. CT scan confirmed progression of cancer in the liver.. History of left lower extremity DVT currently on Eliquis. Eliquis discontinued in December 2023. Patient now have recurrence of PE as noted on recent scan Will continue Eliquis Will start on chemotherapy for metastatic colon cancer Will hold biopsy for now Prostate cancer S/p robotic prostatectomy in July 2019 without any clinical evidence of recurrence. Currently being followed by Dr. Gillis Type 2 diabetes. Hypertension. Hypercholesterolemia Will see him back in clinic in 6 months with CBC, CMP, CEA, PSA done prior to the visit ORDERS: Order # Description [id number] Comprehensive Metabolic Panel + CBC with Auto Diff + CEA + Urinalysis, Automated with Microscopy [id number] Follow Up Appointment [id number] Infusion 6 Hours [id number] Discontinue CIV Pump [id number] Comprehensive Metabolic Panel + CBC with Auto Diff + CEA + Urinalysis, Automated with Microscopy [id number] Follow Up Appointment [id number] Infusion 6 Hours [id number] Discontinue CIV Pump [id number] Comprehensive Metabolic Panel + CBC with Auto Diff + CEA + Urinalysis, Automated with Microscopy [id number] Follow Up Appointment [id number] Infusion 6 Hours [id number] Discontinue CIV Pump [id number] Comprehensive Metabolic Panel + CBC with Auto Diff + CEA + Urinalysis, Automated with Microscopy [id number] Follow Up Appointment [id number] Infusion 6 Hours [id number] Discontinue CIV Pump [id number] Comprehensive Metabolic Panel + CBC with Auto Diff + CEA + Urinalysis, Automated with Microscopy [id number] Follow Up Appointment [id number] Infusion 6 Hours [id number] Discontinue CIV Pump [id number] Comprehensive Metabolic Panel + CBC with Auto Diff + CEA + Urinalysis, Automated with Microscopy [id number] Follow Up Appointment [id number] Infusion 6 Hours [id number] Discontinue CIV Pump [id number] Comprehensive Metabolic Panel + CBC with Auto Diff + CEA + Urinalysis, Automated with Microscopy [id number] Follow Up Appointment [id number] Infusion 6 Hours [id number] Discontinue CIV Pump [id number] Comprehensive Metabolic Panel + CBC with Auto Diff + CEA + Urinalysis, Automated with Microscopy [id number] Follow Up Appointment [id number] Infusion 6 Hours [id number] Discontinue CIV Pump [id number] Comprehensive Metabolic Panel + CBC with Auto Diff + CEA + Urinalysis, Automated with Microscopy [id number] Follow Up Appointment [id number] Infusion 6 Hours [id number] Discontinue CIV Pump [id number] Comprehensive Metabolic Panel + CBC with Auto Diff + CEA + Urinalysis, Automated with Microscopy [id number] Follow Up Appointment [id number] Infusion 6 Hours [id number] Discontinue CIV Pump [id number] Comprehensive Metabolic Panel + CBC with Auto Diff + CEA + Urinalysis, Automated with Microscopy [id number] Follow Up Appointment [id number] Infusion 6 Hours [id number] Discontinue CIV Pump [id number] Comprehensive Metabolic Panel + CBC with Auto Diff + CEA + Urinalysis, Automated with Microscopy [id number] Follow Up Appointment RETURN TO CLINIC: I reviewed the diagnosis, prognosis, and recommended treatment/procedure options with the patient (and/or their legal commercial pest control representative), including the potential benefits, risks, side effects and alternative therapies. We also discussed the option of no treatment and the possibility of clinical trial participation, if applicable. All questions were addressed, and they demonstrated understanding. They provided informed consent to proceed with the proposed plan of care. BILLING AND COMPLIANCE: I reviewed external records from providers outside my specialty as summarized above. I spent a total of 50 minutes on this patient?s care on the day of their visit excluding time spent related to any billed procedures. This time includes time spent with the patient as well as time spent documenting in the medical record, reviewing patients records and tests, obtaining history, placing orders, communicating with other healthcare professionals, counseling the patient, family or caregiver, and/or care coordination for the diagnoses above. Electronically Signed by: Jair Kramer MD T: 10:23 PM CC: Massimo?Rubens? PCP: Skyler Palacio Referring: Skyler Palacio This document was completed utilizing speech recognition software. Grammatical errors, random word insertions, pronoun errors, and incomplete sentences are an occasional consequence of this system due to software limitations, ambient noise, and hardware issues. Any formal questions or concerns about the content, text or information contained within the body of this dictation should be directly addressed to the provider for clarification.
== END 2025-09-10 23:59 | disposition home or self-care (01) ==
LOC: SCTC 11:33
PROVIDERS: PCP Family Medicine; Referring Provider Family Medicine; Visit Provider Internal Medicine Hematology & Oncology
DX: C18.7 Malignant neoplasm of sigmoid colon (principal); Z90.49 Acquired absence of other specified parts of digestive tract; Z86.718 Personal history of other venous thrombosis and embolism; Z79.01 Long term (current) use of anticoagulants; Z85.46 Personal history of malignant neoplasm of prostate; Z90.79 Acquired absence of other genital organ(s); E11.9 Type 2 diabetes mellitus without complications; I10 Essential (primary) hypertension; E78.00 Pure hypercholesterolemia, unspecified
CPT/HCPCS: 99212; G0463

== ENCOUNTER → 2025-09-15 | Outpatient (CLI) | payer MEDICARE, OTHER, SELFPAY ==
[2025-09-15 09:22] LABS: Basophils # (Auto) 0.0 Thou/mm3 (0.0-0.2); Basophils % (Auto) 0 % (0-2.5); Eosinophils # (Auto) 0.3 Thou/mm3 (0.0-0.5); Eosinophils % (Auto) 3 % (0-10); Hematocrit 39.2 % (41.0-53.0); Hemoglobin 12.7 g/dL (13.5-16.0); Immature Granulocytes Auto 0.04 Thou/mm3 (0.00-0.00); Lymphocytes # (Auto) 1.5 Thou/mm3 (1.0-4.8); Lymphocytes % (Auto) 15 % (10-50); Mean Corpuscular HGB Conc 32.4 g/dl (31.0-37.0); Mean Corpuscular Hemoglobin 28.8 pg (25.0-35.0); Mean Corpuscular Volume 89 fL (80-100); Monocytes # (Auto) 0.7 Thou/mm3 (0.0-0.8); Monocytes % (Auto) 7 % (0-12); Neutrophils # (Auto) 7.5 Thou/mm3 (1.8-7.7); Neutrophils % (Auto) 75 % (37-80); Nucleated Red Blood Cell # 0.00 Thou/mm3 (0.00-0.00); Nucleated Red Blood Cell % 0 /100 WBC (0); Platelet Count 301 Thou/mm3 (140-440); RDW Standard Deviation 42.5 fL (35.1-43.9); Red Blood Count 4.41 Miln/mm3 (4.50-5.90); White Blood Count 10.1 Thou/mm3 (3.8-10.6)
[2025-09-15 09:30] LABS: Glucose Estimated Average 131 mg/dL (80-131); Hemoglobin A1C 6.2 % Hgb (4.8-6.0)
[2025-09-15 09:45] LABS: Alanine Aminotransferase 11 U/L (10-49); Albumin, Serum 4.4 gm/dL (3.4-4.8); Alkaline Phosphatase 115 U/L (46-116); Anion Gap 13 (7-16); Aspartate Amino Transferase 24 U/L (0-34); BUN/Creatinine Ratio 10 Ratio (12-20); Bilirubin,Direct 0.2 mg/dL (0.0-0.3); Bilirubin,Total 0.5 mg/dL (0.3-1.2); Blood Urea Nitrogen 11 mg/dL (9-23); Calcium 9.3 mg/dL (8.3-10.6); Carbon Dioxide 21.6 mMol/L (20.0-31.0); Cardiac Risk Estimate 3.4 RATIO (4.0-6.7); Chloride 107 mMol/L (98-107); Cholesterol 109 mg/dL (132-200); Creatinine (Component) 1.1 mg/dL (0.6-1.3); Free T4 (Free Thyroxine) 1.08 ng/dL (0.89-1.76); Glucose 126 mg/dL (74-106); HDL Cholesterol 32 mg/dL (40-60); LDL Cholesterol,Calculated 62 mg/dL (0-130); Osmolality,Calculated 284 (275-295); Potassium 3.9 mMol/L (3.4-5.1); Sodium 142 mMol/L (136-145); Thyroid Stimulating Hormone 5.24 uIU/mL (0.55-4.78); Total Protein 6.8 gm/dL (5.7-8.2); Triglycerides 76 mg/dL (30-150); eGFR > 60 See Note
== END | disposition home or self-care (01) ==
LOC: COPL 08:06
PROVIDERS: PCP Family Medicine; Referring Provider Internal Medicine Cardiovascular Disease; Visit Provider Internal Medicine Cardiovascular Disease
DX: I10 Essential (primary) hypertension (principal); E78.5 Hyperlipidemia, unspecified; E11.65 Type 2 diabetes mellitus with hyperglycemia; E07.9 Disorder of thyroid, unspecified
CPT/HCPCS: 36415; 80048; 80061; 80076; 83036; 84439; 84443; 85025

== ENCOUNTER 2025-09-22 11:07 | Outpatient (RCR) | payer MEDICARE, OTHER, SELFPAY ==
[2025-09-17 12:22] LABS: Collection Type, Urine Voided; Misc Send Out* See Sep Rpt
[2025-09-17 12:43] LABS: Basophils # (Auto) 0.1 Thou/mm3 (0.0-0.2); Basophils % (Auto) 1 % (0-2.5); Bilirubin,Urine Negative (Negative); Blood,Urine Trace (Negative); Clarity,Urine Clear (Clear/Hazy); Color,Urine Yellow (Lt Yel-Yel); Eosinophils # (Auto) 0.4 Thou/mm3 (0.0-0.5); Eosinophils % (Auto) 4 % (0-10); Glucose, Urine Trace (Negative); Hematocrit 38.3 % (41.0-53.0); Hemoglobin 12.2 g/dL (13.5-16.0); Immature Granulocytes Auto 0.04 Thou/mm3 (0.00-0.00); Ketones,Urine Negative (Negative); Leukocyte Esterase,Urine Negative (Negative); Lymphocytes # (Auto) 1.8 Thou/mm3 (1.0-4.8); Lymphocytes % (Auto) 17 % (10-50); Mean Corpuscular HGB Conc 31.9 g/dl (31.0-37.0); Mean Corpuscular Hemoglobin 29.0 pg (25.0-35.0); Mean Corpuscular Volume 91 fL (80-100); Monocytes # (Auto) 0.7 Thou/mm3 (0.0-0.8); Monocytes % (Auto) 7 % (0-12); Neutrophils # (Auto) 7.8 Thou/mm3 (1.8-7.7); Neutrophils % (Auto) 72 % (37-80); Nitrite,Urine Negative (Negative); Nucleated Red Blood Cell # 0.00 Thou/mm3 (0.00-0.00); Nucleated Red Blood Cell % 0 /100 WBC (0); PH,Urine 5.5 (5.0-7.0); Platelet Count 308 Thou/mm3 (140-440); Protein,Urine 1+ (Neg - Trace); RBC,Urine 1 /hpf (0-3); RDW Standard Deviation 44.2 fL (35.1-43.9); Red Blood Count 4.21 Miln/mm3 (4.50-5.90); Specific Gravity,Urine 1.021 (1.001-1.035); Squamous Epithelial Cell,Urine < 1 /hpf (0-5); Urobilinogen,Urine Negative mg/dL (0.0-1.0); WBC,Urine 1 /hpf (0-5); White Blood Count 10.8 Thou/mm3 (3.8-10.6)
[2025-09-17 12:51] LABS: Alanine Aminotransferase 11 U/L (10-49); Albumin, Serum 4.5 gm/dL (3.4-4.8); Albumin/Globulin Ratio 1.9 (1.2-2.2); Alkaline Phosphatase 114 U/L (46-116); Anion Gap 11 (7-16); Aspartate Amino Transferase 22 U/L (0-34); BUN/Creatinine Ratio 13 Ratio (12-20); Bilirubin,Total 0.4 mg/dL (0.3-1.2); Blood Urea Nitrogen 15 mg/dL (9-23); Calcium 9.4 mg/dL (8.3-10.6); Calcium (Corrected) 9.4 mg/dL (8.5-10.1); Carbon Dioxide 23.6 mMol/L (20.0-31.0); Chloride 107 mMol/L (98-107); Creatinine (Component) 1.2 mg/dL (0.6-1.3); Globulin 2.4 gm/dL (2.3-3.5); Glucose 236 mg/dL (74-106); Osmolality,Calculated 291 (275-295); Potassium 3.8 mMol/L (3.4-5.1); Sodium 142 mMol/L (136-145); Total Protein 6.9 gm/dL (5.7-8.2); eGFR > 60 See Note
[2025-09-17 12:55] LABS: Carcinoembryonic Antigen 9.7 ng/mL (0.0-5.0)
== END 2025-10-10 23:59 | disposition home or self-care (01) ==
LOC: SCTC 11:07
PROVIDERS: PCP Family Medicine; Referring Provider Family Medicine; Visit Provider Internal Medicine Hematology & Oncology
DX: Z51.11 Encounter for antineoplastic chemotherapy (principal); C18.7 Malignant neoplasm of sigmoid colon; Z90.49 Acquired absence of other specified parts of digestive tract; R97.0 Elevated carcinoembryonic antigen [CEA]; Z86.718 Personal history of other venous thrombosis and embolism; Z79.01 Long term (current) use of anticoagulants; Z85.46 Personal history of malignant neoplasm of prostate; Z90.79 Acquired absence of other genital organ(s); E11.9 Type 2 diabetes mellitus without complications; I10 Essential (primary) hypertension; E78.00 Pure hypercholesterolemia, unspecified; I26.99 Other pulmonary embolism without acute cor pulmonale
CPT/HCPCS: 36591; 80053; 81001; 81232; 82378; 85025; 96367; 96368; 96413; 96415; 96416; 96417; A4216; J0640; J1100; J1642; J2469; J3490; J7050; J7060; J9190; J9263; Q5126; A9270

== ENCOUNTER → 2025-09-29 | Outpatient (CLI) | payer MEDICARE, OTHER, SELFPAY ==
[2025-09-29 11:09] LABS: Glucose Estimated Average 137 mg/dL (80-131); Hemoglobin A1C 6.4 % Hgb (4.8-6.0)
[2025-09-29 11:15] LABS: Free T4 (Free Thyroxine) 1.63 ng/dL (0.89-1.76); Thyroid Stimulating Hormone 4.62 uIU/mL (0.55-4.78)
== END | disposition home or self-care (01) ==
LOC: COPL 09:29
PROVIDERS: PCP Family Medicine; Referring Provider Family Medicine; Visit Provider Family Medicine
DX: E11.65 Type 2 diabetes mellitus with hyperglycemia (principal); E03.2 Hypothyroidism due to medicaments and other exogenous substances
CPT/HCPCS: 36415; 83036; 84439; 84443

== ENCOUNTER → 2025-10-28 | Outpatient (CLI) | payer MEDICARE, OTHER, SELFPAY ==
--- NOTE | 2025-10-28 08:00 | XR_ITS ---
Examination: MRI abdomen with intravenous contrast Date and time of exam: October 282024, 0831 hours INDICATIONS: Diagnosis rectal cancer 2022, no enhancing liver lesions on MRI abdomen December 12, 2023, however biopsy anterior liver lesion on December 18, 2022, interval numerous large hepatic metastases on CT abdomen August 27, 2025 Technique: Multiple MRI axial and sagittal sections lumbar spine. Sagittal T2-weighted images, TR 3500, TE 118 T1 weighted transverse sections, TR 688 T8.5, T2-weighted sagittal sections T1 weighted sagittal sections TR 621, TE 30 T2 axial sections, TR 4, 190, TE 84. Findings: Irregular enhancing left lobe liver lesions, 8.4 cm and posterior left lobe 5.2 cm Medial enhancing right lobe liver lesion 7.7 cm Exophytic anterior liver lesion 18 mm Enhancing lower right lobe liver lesion 18 mm Spleen is not enlarged No pancreatic mass Benign bilateral renal cysts No abdominal lymphadenopathy No ascites IMPRESSION: Multiple enhancing liver lesions as above
== END | disposition home or self-care (01) ==
LOC: SMRI 07:40
PROVIDERS: PCP Family Medicine; Referring Provider Internal Medicine Hematology & Oncology; Visit Provider Internal Medicine Hematology & Oncology
DX: K76.9 Liver disease, unspecified (principal); C20 Malignant neoplasm of rectum; C61 Malignant neoplasm of prostate
CPT/HCPCS: 74182; A9577